=== PATIENT | female | born 1955 | race Caucasian/White ===

== ENCOUNTER → 2023-01-06 | Outpatient (CLI) | payer MEDICARE, OTHER ==
--- NOTE | 2023-01-07 12:26 | MM ---
Reason for Exam: Screening (asymptomatic). Patient History: Menarche at age 11. First Full-Term at age 19. Postmenopausal. MG stereo VAD BX LT - 2 on the Left side. MG stereo VAD BX RT on the Right side. MG stereo VAD BX RT on the Right side. Niece had breast cancer. Risk Values: Monik 5 year model risk: 2.3%. NCI Lifetime model risk: 7.1%. Tissue Density: The breast tissue is heterogeneously dense. This may lower the sensitivity of mammography. Findings: Analyzed By CAD. There is no suspicious group of microcalcifications or new suspicious mass in either breast. Overall Assessment: Benign, BI-RAD 2 Management: Screening Mammogram of both breasts in 1 year. . Patient should continue monthly self-breast exams. A clinical breast exam by your physician is recommended on an annual basis. This exam should not preclude additional follow-up of suspicious palpable abnormalities. Note on Monik scores and lifetime risk: 1. A Monik score greater than 3% is considered moderate risk. If this is the case, consider specialist referral to assess eligibility for a risk reducing agent. 2. If overall lifetime risk for the development of breast cancer is 20% or higher, the patient may qualify for future screening with alternating mammogram and breast MRI. Electronically signed and approved by: Doug Clark M.D. Radiologis
== END | disposition home or self-care (01) ==
LOC: RADMAMWWP 10:11
PROVIDERS: ATTEND Family Medicine
DX: Z12.31 Encounter for screening mammogram for malignant neoplasm of breast (principal); Z78.0 Asymptomatic menopausal state; Z80.3 Family history of malignant neoplasm of breast
CPT/HCPCS: 77067

== ENCOUNTER → 2024-02-26 | Outpatient (CLI) | payer MEDICARE, OTHER ==
--- NOTE | 2024-02-26 13:47 | CTL ---
EXAMINATION TYPE: CT Low Dose Lung DATE OF EXAM: 02/26/2024 11:50 AM COMPARISON: None. CLINICAL INDICATION: Female, 68 years old with history of Z12.2 LUNG CA SCREEN Z87.891 HX SMOKING, Fo rmer smoker, quit x 6 months ago. 1.5 ppd x 50 years, Lung cancer screening, History of tobacco use. TECHNIQUE: Low dose computed tomography scan was performed through the chest at 1 mm thick sections a nd reconstructed images in the coronal plane at 1 mm thick sections. Contrast used: mL of , (none if empty) Oral contrast used: (none if empty) CT DLP: 84.8 mGycm, Automated exposure control for dose reduction was used. CT CTDI: 2.3 mGy, Automated exposure control for dose reduction was used. SCREENING VISIT: Initial CT DIAGNOSTIC QUALITY: Satisfactory FINDINGS: LUNG NODULES: None. LUNGS: COPD: Severity: None Fibrosis: Severity: None Lymph nodes: None Other findings: None RIGHT PLEURAL SPACE: Effusion: None Calcification: None Thickening: None Pneumothorax: None LEFT PLEURAL SPACE: Effusion: None Calcification: None Thickening: None Pneumothorax: None HEART: Other: Ascending thoracic aorta at the level the main pulmonary artery measures 3.6 cm. The main pul monary artery at the bifurcation measures 3.0 cm. Heart Size: Normal Coronary calcification: Minimal Pericardial effusion: None OTHER FINDINGS: Upper abdomen: Normal Bony thorax: Normal Supraclavicular region: Normal IMPRESSION: 1. No suspicious changes to suggest primary or metastatic neoplasm. FOLLOW UP CT CHEST RECOMMENDATION: Follow-up low-dose CT chest one year CT LUNG RAD: Lung-Rad 1 Negative [facility] Noemi Davies, Workstation: [id number], 02/26/2024 1:44 PM
== END | disposition home or self-care (01) ==
LOC: RADCTMAIN 11:19
PROVIDERS: ATTEND Family Medicine
DX: Z12.2 Encounter for screening for malignant neoplasm of respiratory organs (principal); Z87.891 Personal history of nicotine dependence
CPT/HCPCS: 71271

== ENCOUNTER → 2024-08-23 | Outpatient (CLI) | payer MEDICARE, OTHER ==
--- NOTE | 2024-08-23 13:20 | CA ---
Exercise Stress Test Report Name: Iliana Medina Exam Date: 08/23/2024 10:46 Exam Location: [place] Stress Ht (in): 62 Wt (lb): 160 BSA: 1.74 Ordering Phys: Benji Garcia MD Referring Phys: Makenzie Tidwell [facility] Technologist: LEN Age: 68 Gender: F : 1955 Procedure CPT: Indications: R06.09 Dyspnea ICD-10 Codes: Patient History: TWYLA, HIGH CHOL, FAMILY HX, TOB QUIT 1 YEAR AGO, Medications: ROSUVASTATIN,,,, ALENDRONATE,,,, D3,,,, K2,,,, FISH OIL,,, Meds past 24 hrs: Pretest Chest Pain: STRESS TEST [place] Protocol Exercise Duration (min:sec): 03:[address] Depressions (mm): Angina Score: Pabon Score: Resting HR (bpm): 79 Peak HR (bpm): 131 Resting BP (mmHg): 142 / 67 Peak BP (mmHg): 212 / 71 MPHR: 150 Target HR: 128 % MPHR: 87 METS: 5.9 Total Dose: Peak Dose: Atropine: Double Product: 52370 BP Response: Stress Termination: TARGET HR REACHED/MAX EXERTION Stress Symptoms: DIFFICULTY IN BREATHING Stress Summary: ECG ANALYSIS Resting ECG: Stress ECG: CONCLUSIONS Poor exercise tolerance Normal electrocardiogram in response to exercise Dr. Amadeo Regan MD (Electronically Signed) Final Date: 23 August 2024 13:19
== END | disposition home or self-care (01) ==
LOC: RADNMMAIN 10:15
PROVIDERS: ATTEND Family Medicine
DX: R06.09 Other forms of dyspnea (principal)
CPT/HCPCS: 93017